=== PATIENT | female | born 1980 | race Hispanic/Latino ===

== ENCOUNTER 2017-09-23 06:46 | Day surgery (SDC) | payer BC ==
[2017-09-21 11:49] VITALS: BMI 22.8
[2017-09-23] MEDS ORDERED: Bupivacaine 0.5% Inj(30mL) ONE (07:09)
[2017-09-23 07:42] LABS: HEMOGLOBIN 14.4 g/dL (12.0-16.0); MEAN CORPUSCULAR HGB CONC 33.3 g/dL (33.0-37.0); RBC 4.64 Mil/uL (3.80-5.20); RED CELL DISTRIBUTION WIDTH 13.6 % (11.5-14.5); WHITE BLOOD COUNT 3.8 K/uL (4.8-10.8)
[2017-09-23] MEDS ORDERED: Lactated Ringer's 1,000 ML IV ONE ×3 (07:42→09:30)
[2017-09-23] MEDS ORDERED: Propofol 10 mg/ml Inj (20 ML) ONE (08:24)
[2017-09-23] MEDS ORDERED: Succinylcholine 200 mg/10 ml Inj IV ONE (08:24)
[2017-09-23] MEDS ORDERED: Lidocaine 4% (Laryng-O-Jet) Kit MM ONE (08:24)
[2017-09-23] MEDS ORDERED: Etomidate 20 mg/10ml Inj IV ONE (08:24)
[2017-09-23] MEDS ORDERED: Rocuronium 10 mg/ml (5 ml) ONE (08:27)
[2017-09-23] MEDS ORDERED: Bupivacaine HCl 0.25% PF (30 ml) Inj ONE (08:31)
[2017-09-23] MEDS ORDERED: Phenylephrine 10 mg/ml Inj ONE (08:31)
[2017-09-23] MEDS ORDERED: Midazolam 2 MG/2 ML VIAL ONE (08:58)
[2017-09-23] MEDS ORDERED: Bupivacaine 0.5% 50 ML IJ ONE ×2 (09:40)
[2017-09-23] MEDS ORDERED: Dexamethasone 4 mg/1 ml ONE (09:42)
[2017-09-23] MEDS ORDERED: Neostigmine 1:1000 (1 mg/ml) Inj ONE (09:51)
[2017-09-23] MEDS ORDERED: HYDROmorphone 0.5 mg/0.5 ml ISec IVP PRN (11:04)
[2017-09-23] MEDS ORDERED: Lactated Ringer's 1,000 ML IV SCH (11:15)
--- NOTE | 2017-09-23 11:15 | PCM.ANESB5 ---
Transverse Abdominis Block - Transverse Abdominis Plane Date of Procedure: 09/23/17 Anesthesiologist: Fang Pre-Procedure Diagnosis: Endometriosis Post-Procedure Diagnosis: Same Procedure Performed: Transverse Abdominis Plane Nerve Block Left, Transverse Abdominis Plane Nerve Block Right - Procedure Transverse Abdominis Plane Nerve Block: The procedure was explained to the patient that it is for post-operative pain management and would be performed after surgery. Consent was obtained prior to surgery after a thorough discussion with the patient regarding the benefits and possible complications of transverse abdominis plane block. After the surgery had concluded and before the patient emerged from general anesthesia, time-out was held with the circulating nurse to re-confirm the appropriate block. With the patient in supine position, the ultrasound probe was placed transverse to the abdominal wall at the mid-axillary line above the iliac crest of the appropriate side. The skin, subcutaneous tissue, fat, external oblique muscle, internal oblique muscle, and the transverse abdominis muscle were identified. The general area of the block site was then prepped with Betadine three times. At this point, a # 21-gauge Stimuplex 4-inch needle was inserted posterior to and in plane with the ultrasound probe and directed anteriorly. Needle was advanced under direct ultrasound visualization until it reached the plane between the internal oblique and transverse abdominis muscles. After appropriate placement, 2mL of local anesthetic solution was injected. When the transverse abdominis plane was observed expanding in an ellipsoid way, the rest of the solution was slowly injected. A total of __20____ mL of __0.25___ % __ bupivicaine was used for this block. The needle was then removed and sterile dressing was applied. Similarly, the same procedure was performed on the other side using the same medications. The patient had stable vital signs throughout and had no untoward complications after emergence from general anesthesia in the recovery room.
[2017-09-23] MEDS ORDERED: Oxycodone/Acetaminophen 5/325 mg Tab PO PRN (11:25)
[2017-09-23 12:48] VITALS: RESP 18
[2017-09-23 15:34] VITALS: BP 118/78; PULSE 102; TEMP 98.6; O2SAT 98
--- NOTE | 2017-09-26 17:07 | OP ---
PROCEDURE DATE: 09/23/2017 PREOPERATIVE DIAGNOSES: Pelvic pain, dysmenorrhea, and dyspareunia. POSTOPERATIVE DIAGNOSES: Pelvic pain, dysmenorrhea, dyspareunia plus pelvic endometriosis. PROCEDURE PERFORMED: Cystoscopy with bilateral ureteral catheterization, injection of dye, diagnostic hysteroscopy, robotic da Alex laparoscopy, excision of endometriosis, and bilateral ureterolysis. SURGEON: Keenan Estrada MD EMBEDDED CASE MANAGER: Assisted by Hardy Fernandez MD COMPLICATIONS: None. ESTIMATED BLOOD LOSS: Minimal. SAMPLES: Peritoneal samples containing endometriosis from left pelvis side well, posterior cervical aspect, cul-de-sac and right pelvic side wall. INDICATIONS FOR THE PROCEDURE: The patient is a 36-year-old with known a history of endometriosis surgery 3 years ago and she had persistent symptoms. 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 Prior to the surgery, the patient was counseled with regard to the risks and benefits of the operation. She also was counseled with the fact that she was slightly more complicated case in terms of outcome secondary to her Bhavna-Danlos disease. She also had a preoperative anesthesia consult with regards to a proper medication, surgical positioning and all other issues regarding her disease including intubation. The patient signed the consent and was taken to the OR. DESCRIPTION OF PROCEDURE: After adequate anesthesia was obtained, the patient was placed in dorsal lithotomy position. She was prepped and draped. The surgeon gowned and gloved. Prior to starting the procedure, the patient was placed in a most comfortable position while awake to make sure the hips were neither overextended or overflexed and extensive padding was placed over her body to avoid any pressure points. A time out was taken according to hospital policy and the procedure was started. A cystoscope was placed into the bladder under direct visualization and the bladder was gently dilated and both ureter appear to be in normal anatomical position. The left ureter was catheterized all the way to the distal ureter utilizing a 5-Austrian open ended catheter and 5-mL of IC-Green were injected. Attention was on the contralateral on the right ureter where the ureteral ostia was also catheterized all the way to the distal ureter, injecting 5 mL of IC-Green. At this point, a Gonzalez was replaced and was placed in the place of the cystoscope and attention was in the vaginal area where speculum was placed in the vagina. The anterior lip of the cervix was grasped and the cervix was gently dilated. The cavity was visualized, but visualization was not perfect, but I was not able to see any tumors or polyps. At this point, attention was on the abdominal site where after regowning and regloving, a very small incision was made in the infraumbilical area without putting too much pressure and the sbdomen entered with open laparoscopy technique. The abdomen was gently distended utilizing gas and cannula was inserted. Under direct visualization, three additional port were inserted, left upper quadrant, and right upper quadrant. At this point, the pelvis was visualized. The patient appeared to have postsurgical changes from her prior endometriosis surgery. There appeared to be residual endometriosis disease both on the left pelvic side wall and on the right pelvic side wall. At this point, the first part of the surgery was in left pelvic side wall where the retroperitoneal space was entered and a full dissection was performed and excising a large area of peritoneum all the way from the utero-ovarian ligament, all the way down to the left uterosacral ligament. Throughout this process, the ureter was dissected all the way and lateralized and a large area peritoneum containing endometriosis was then excised. At this point, the left cul-de-sac area was identified and an area peritoneum lateral to the rectum was also excised and sent to Pathology. The posterior cervical area was also excised obtaining a large area which was both inflammatory and containing possibly endometriosis. At this point, attention was on the right hand side where again the retroperitoneal space was entered and a full dissection was performed excising peritoneum and lateralizing the ureter, which was closely kept under visualization utilizing fluorescence technology. At this point, a full excision was done all the way to the uterosacral ligament and continue all the way into the cul-de-sac area with a full excision performed. At this point, it was checked for hemostasis and appeared to be excellent. The rest of the pelvis was examined, appeared to be in normal condition. Normal saline was injected through the cervix and saline was seen coming out of fallopian tube and it was clear. Both fallopian tubes were normal in caliber with normal fimbriated end. At the end of the procedure, all tapes and instruments counts were correct. The da Alex robot was taken away. The abdomen was desufflated. The incision was closed in layers utilizing PDS for the fascia and 4-0 Monocryl for the skin. The patient was then taken to the recovery room in excellent condition. Keenan Estrada MD [facility]
== END 2017-09-23 15:40 | disposition home or self-care (01) ==
LOC: H.OPSURG 06:46
PROVIDERS: ATTEND Obstetrics & Gynecology Reproductive Endocrinology
DX: N80.3 Endometriosis of pelvic peritoneum (principal); R10.2 Pelvic and perineal pain; N94.6 Dysmenorrhea, unspecified; Q79.6 Ehlers-Danlos syndromes
CPT/HCPCS: 36415; 58555; 58662; 64488; 85027; 86850; 86900; 88305; C1729; J0131; J0330; J0690; J1100; J2001; J2175; J2250; J2370; J2405; J2704; J2710; J3010; J7030; J7040; J7120